=== PATIENT | female | born 1955 | race Caucasian/White ===

== ENCOUNTER 2016-07-01 03:26 | Observation (INO) | payer BC ==
--- NOTE | ~2016-07-01 | HP ---
History And Physical [place] [id number] [facility] [place]. [address] NAME: ROSALINE MARKS : 51 STATUS : ADM Kenan PAT#: [id number] AGE: 60 ADM/REG DATE : 07/01/16 MR#: [id number] REPORT SERV DATE: 07/01/16 DICTATED BY: SHEELA MARTINEZ DATE: 07/01/16 REPORT STATUS : Draft TRANSCRIBED BY: MODDayron DATE: 07/01/16 DATE OF ADMISSION: 07/01/2016 HIDE AND SKIN CLASSER: None. FINANCIAL RETIREMENT PLAN SPECIALIST: Formerly Dr. Caraballo, who has recently retired and patient is seeking new sweep molder. CHIEF COMPLAINT: Chest pain and heart racing. HISTORY OF PRESENT ILLNESS: This is a 60-year-old, white female, with a history of hyperthyroidism, on PTU for many years with no cardiac history. She reports that she has had chest soreness since Monday, which occurred while she was sitting on a hard chair. She continued to have some episodes of chest soreness since then. There was no exertional component. Then yesterday, she felt palpitations and heart racing in the evening hours. She went to bed and awakened at 1 o'clock with heart racing and precordial chest pain. She went to the emergency room, where she was found to be in atrial fibrillation with RVR. They provided her with diltiazem drip and she has had no further chest pain or symptoms since then. She has remained in normal sinus rhythm. She denies any syncope. No chest pain on exertion. She denies any previous cardiac evaluation. She reports that she was at an urgent care within the past several days for sinusitis and that they did not tell her of any elevated heart rate. She reports that they did a chest x-ray, but that they did not do an EKG. She reports her blood pressure was up then, but normally her blood pressure was not elevated. 1. Hyperthyroidism first diagnosed 23 years ago with a nodule and then re-diagnosed and on medications for approximately 20 years with normal T4 and TSH today. 2. Right localized breast cancer status post mastectomy and on tamoxifen for five years. She has been off it for one year. No recurrence. 3. Bladder obstruction as a child. 4. Previously been told blood pressure was mildly elevated and told to lose weight. 5. History of hyperglycemia. This is being monitored by PCP and she has not been diagnosed with diabetes at this time. PAST SURGICAL HISTORY: 1. Right mastectomy. 2. in 1982 and 1986. 3. Bladder surgery as a child. SOCIAL HISTORY: . No tobacco or alcohol. She denies any exercise program. FAMILY HISTORY: Positive for hypertension. ALLERGIES: 1. SULFA REACTION, ALL-OVER BODY RASH. 2. TAPAZOLE, ALL-OVER BODY RASH. History And Physical [address] [address] NAME: ROSALINE MARKS : 51 STATUS : ADM Kenan PAT#: [id number] AGE: 60 ADM/REG DATE : 07/01/16 MR#: [id number] REPORT SERV DATE: 07/01/16 DICTATED BY: SHEELA MARTINEZ DATE: 07/01/16 REPORT STATUS : Draft TRANSCRIBED BY: EDY DATE: 07/01/16 HOME MEDICATIONS: List is reviewed and includes Effexor XR 75 mg p.o. every morning and propylthiouracil 50 mg p.o. twice per day. REVIEW OF SYSTEMS: The patient denies having an EKG in the past, but never having a cardiac evaluation, otherwise. The patient denies any current sinusitis symptoms at this time. As above per HPI, all other systems reviewed and negative. PHYSICAL EXAMINATION: VITAL SIGNS: Oxygen saturation 95% on room air, pulse initially 179 and subsequently 70, respiratory rate 20, blood pressure initially 145/75, subsequently 110/62, 172.72 cm with a height, weight is 92.56 kg, and temperature 98.1. GENERAL: Well developed, well nourished. In no apparent distress. HEENT: Head normocephalic. No xanthelasma. Sclera clear, anicteric. Moist mucous membranes without pallor. No lymphadenopathy. No deficits noted. NECK: Trachea midline. Supple. No thyromegaly, JVD, or bruits. RESPIRATORY: Unlabored respirations. Breath sounds clear bilaterally to posterior auscultation. No wheezes, rhonchi or crackles. CARDIOVASCULAR: Regular rate and rhythm. No murmur, rub, or gallop appreciated. No chest wall tenderness to palpation. ABDOMEN: Soft, nontender, and nondistended. Active bowel sounds auscultated x4 quadrants. No organomegaly and no masses. No aortic bruit. EXTREMITIES: DP/PT and radial pulses 2+ bilaterally. No clubbing, cyanosis, or edema. SKIN: Warm, dry, intact. No rash. Normal turgor. MUSCULOSKELETAL: Moves all extremities in bed without difficulty. NEURO/PSYCH: Alert and oriented x3 with no acute distress. Affect appropriate to current situation. LABORATORY DATA: BMP: Sodium 144, potassium 3.6, creatinine 0.84, glucose 160, calcium 9.3, magnesium 1.9. CBC: White blood cell count 11.6, hemoglobin 14.8, hematocrit 43.8, and platelets 389. Troponin 0.06, 0.03. BNP 61.3. TSH 3.490, free T4 1.13. Normal LFTs. STUDIES: 1. Chest x-ray, lungs clear. Heart size, normal. 2. EKGs, personally interpreted x2, first atrial fibrillation with RVR with PVCs and second, normal sinus rhythm. 3. Telemetry normal sinus rhythm. ASSESSMENT AND PLAN: 1. Paroxysmal atrial fibrillation with rapid ventricular response converting to sinus rhythm. Start metoprolol and Eliquis. I checked an echocardiogram, which was normal. Follow up with Dr. Morrison in three weeks. 2. Atypical chest pain. I checked a second troponin and it was flat. I checked a nuclear stress test given the chest pain and risk factor of age. It was low risk with no ischemia and the patient will be discharged to home with followup with primary care and with Dr. Morrison. 3. Borderline abnormal troponin. Again, checked a second troponin, which was flat and History And Physical [address] [address] NAME: ROSALINE MARKS : 51 STATUS : ADM Kenan PAT#: [id number] AGE: 60 ADM/REG DATE : 07/01/16 MR#: [id number] REPORT SERV DATE: 07/01/16 DICTATED BY: SHEELA MARTINEZ DATE: 07/01/16 REPORT STATUS : Draft TRANSCRIBED BY: MODL DATE: 07/01/16 therefore, proceeded with a nuclear stress test, which was benign. Again, follow up with primary care physician. 4. Hyperthyroidism. Checked free T4 and thyroid stimulating hormone and they were within normal limits on her home medication, propylthiouracil. She is to follow up with Endocrinology as her sweep molder has retired. 5. Elevated blood pressure. Again, she is to check her blood pressure daily, record and bring in to primary care provider. The patient was also seen by Dr. Morrison who saw her in the CDU bed 16. The patient is agreeable with the above plan. She will be discharged home at this time. VERONA/EDY Sheela Martinez NP / [id number] CC: Fatuma Neal, MSN, GRAPHITE DISK ASSEMBLER-BC Garrison Solorzano M.D.
[2016-07-01 02:55] LABS: BASOPHILS 0.3 %; BASOPHILS ABSOLUTE 0.03 10/3/uL (0.0-0.16); EOSINOPHILS 2.3 %; EOSINOPHILS ABSOLUTE 0.27 10/3/uL (0.0-0.53); HEMATOCRIT 43.8 % (36.0-48.0); HEMOGLOBIN 14.8 g/dL (12.0-16.0); IMMATURE GRANULOCYTES 0.2 %; IMMATURE GRANULOCYTES ABSOLUTE 0.02 10/3/uL (0.0-0.11); LYMPHOCYTES 42.7 %; LYMPHOCYTES ABSOLUTE 4.96 10/3/uL (0.67-4.30); MANUAL DIFF NO %; MEAN CORPUS HGB CONC 33.8 g/dL (32.0-36.0); MEAN CORPUSCULAR HEMOGLOB 29.8 pg (26.0-34.0); MEAN CORPUSCULAR VOLUME 88.1 fL (80-100); MEAN PLATELET VOLUME 11.4 fL (9.2-13.0); MONOCYTES 8.2 %; MONOCYTES ABSOLUTE 0.95 10/3/uL (0.21-1.20); NEUTROPHILS 46.3 %; NEUTROPHILS ABSOLUTE 5.39 10/3/uL (2.02-8.40); PLATELET COUNT 389 10/3/uL (150-400); RBC DISTRIBUTION WIDTH 13.8 % (12.0-16.0); RED CELL COUNT 4.97 10/6/uL (4.0-5.6); WHITE BLOOD CELLS 11.6 10/3/uL (4.5-10.5)
[2016-07-01 03:02] LABS: PROTIME (NOT ORD) 13.1 SEC (12.0-14.5)
[2016-07-01 03:03] LABS: PARTIAL THROMBO TIME 38.8 SEC (22.5-37.2)
[2016-07-01 03:05] LABS: D-DIMER QUANTITATIVE 0.48 ug/mLFEU (< 0.50)
[~2016-07-01 03:26] MED LIST: DORYX150 MG PO; EFFEXXR75 PO; PROPYLTHIOUR50 MG PO; [UNRECOGNIZED DRUG - OTHER] OR
[2016-07-01 03:27] LABS: BUN (BLOOD UREA NITROGEN) 11 MG/DL (6-23); CALCIUM, SERUM 9.3 MG/DL (8.5-10.4); CHLORIDE, SERUM 107 MMOL/L (96-112); CO2 (CARBON DIOXIDE) 22 MMOL/L (24-34); CREATININE 0.84 MG/DL (0.55-1.02); GFR AFRICAN AMERICAN 86 ML/MIN (>=60); GFR NON AFRICAN AMERICAN 74 ML/MIN (>=60); GLUCOSE, SERUM 160 MG/DL (60-99); POTASSIUM, SERUM 3.6 MMOL/L (3.5-5.3); SODIUM, SERUM 144 MMOL/L (135-148)
[2016-07-01 03:28] LABS: CHEST PAIN PROFILE TAT 0 Hrs 39 Mins; TROPONIN I 0.06 NG/ML (<0.05)
[2016-07-01 09:29] LABS: ALBUMIN 3.4 G/DL (3.5-5.0); DIRECT BILIRUBIN 0.1 MG/DL (0.0-0.4); FREE T4 1.13 NG/DL (0.76-1.46); INDIRECT BILIRUBIN(NOT ORDER) 0.3 MG/DL (0.1-0.9); TOTAL BILIRUBIN 0.4 MG/DL (0-1.2); TOTAL PROTEIN 6.8 G/DL (6.0-8.5); TROPONIN I 0.03 NG/ML (<0.05)
[2016-07-01 09:32] LABS: ULTRASENSITIVE TSH 1.98 MCIU/ML (0.358-3.740)
[2016-07-01] MEDS ORDERED: ELIQUIS 5 MG TAB5 MG PO (14:43)
[2016-07-01] MEDS ORDERED: LOP25 PO (14:44)
== END 2016-07-01 15:58 | disposition home or self-care (01) ==
LOC: ER 03:26 → CDU1 05:11 → CDU2 05:43
PROVIDERS: Clinical Nurse Specialist; Specialist
DX: I48.0 Paroxysmal atrial fibrillation (principal); E05.90 Thyrotoxicosis, unspecified without thyrotoxic crisis or storm; Z85.3 Personal history of malignant neoplasm of breast; Z90.11 Acquired absence of right breast and nipple; Z79.810 Long term (current) use of selective estrogen receptor modulators (SERMs); Z98.890 Other specified postprocedural states; Z88.2 Allergy status to sulfonamides; Z88.1 Allergy status to other antibiotic agents; Z79.899 Other long term (current) drug therapy; R03.0 Elevated blood-pressure reading, without diagnosis of hypertension
CPT/HCPCS: 71010; 78452; 80048; 80076; 83735; 83880; 84439; 84443; 84484; 85025; 85379; 85610; 85730; 93005; 93017; 93306; 96365; 96366; 99285; A9270-GY; A9502; G0378